=== PATIENT | male | born 1985 | race Hispanic/Latino ===

== ENCOUNTER 2020-09-21 09:53 | Day surgery (SDC) | payer BC ==
[~2020-09-21 09:53] MED LIST: ACETAMINOPHEN 500 MG TAB PO SCH; BACTERIOSTATIC SODIUM CHLORIDE 0.9% 30 ML VIAL INFILTRATI ONE; CELECOXIB 200 MG CAP PO NR; GABAPENTIN 300 MG CAP PO NR; LACTATED RINGERS 1,000 ML IV SCH; MIDAZOLAM 2 MG/2 ML INJ IV NR
[2020-09-21] MEDS ORDERED: ceFAZolin/STERILE WATER 2 GM/20 ML SYRINGE IV NR (10:49)
[2020-09-21] MEDS ORDERED: HYDROmorphone 1 MG/1 ML INJ IV PRN (11:20)
[2020-09-21] MEDS ORDERED: ONDANSETRON 4 MG/2 ML INJ IV PRN (11:20)
--- NOTE | 2020-09-21 11:20 | Anesthesia Day of Surgery ---
Anesthesia Day of Surgery - Day of Surgery Patient Examined: Yes Patient H&P Reviewed: Yes Patient is NPO: Yes
--- NOTE | 2020-09-21 11:20 | Anesthesia Consultation ---
Anesthesia Consult and Med Hx Date of service: 09/21/20 - Airway Anesthetic Teeth Evaluation: Good ROM Head & Neck: Adequate Mental/Hyoid Distance: Adequate (s/p ACDF but normal ROM) Mallampati Class: Class II Intubation Access Assessment: Probably Good - Pulmonary Exam CTA: Yes - Cardiac Exam Cardiac Exam: RRR - Pre-Operative Health Status ASA Pre-Surgery Classification: ASA2 Proposed Anesthetic Plan: General - Pulmonary Hx Smoking: Yes (chews tobacco; rare cigar smoker <1x per month) Hx Respiratory Symptoms: No Hx Sleep Apnea: No (NICKOLAS PRE SCREEN LOW RISK) - Cardiovascular System Hx Hypertension: No - Central Nervous System CVA: No Hx Psychiatric Problems: Yes (anxiety) - Endocrine Hx Renal Disease: No Hx Liver Disease: No Hx Insulin Dependent Diabetes: No Hx Non-Insulin Dependent Diabetes: No Hx Thyroid Disease: No - Other Systems Hx Obesity: Yes (BMI 36) - Additional Comments Anesthesia Medical History Comments: No hx anesthetic complications.
[2020-09-21] MEDS ORDERED: LIDOCAINE MPF (2%) 20 MG/1 ML VIAL 5 ML ONE (11:41)
[2020-09-21] MEDS ORDERED: HYDROmorphone 1 MG/1 ML INJ ONE (11:41)
[2020-09-21] MEDS ORDERED: propofoL 200 MG/20 ML VIAL IV ONE (11:41)
[2020-09-21] MEDS ORDERED: SODIUM CHLORIDE 0.9% IRR 1,500 ML BOTTLE IR ONE ×2 (13:31)
[2020-09-21] MEDS ORDERED: ONDANSETRON 4 MG/2 ML INJ ONE (14:16)
[2020-09-21] MEDS ORDERED: KETOROLAC 30 MG/1 ML INJ ONE (14:16)
[2020-09-21] MEDS ORDERED: LACTATED RINGERS 1,000 ML ONE (14:17)
--- NOTE | 2020-09-21 14:43 | Post Operative Note ---
Date of procedure: 09/21/20 Pre-op diagnosis: sterilization fistula Post-op diagnosis: same Findings: 9 mm fistula Procedure: bilat vas and urethral recontrtuction repair fistula Anesthesia: GETA Surgeon: HERMILA MARQUEZ Estimated blood loss: minimal Pathology: list (vasa) Specimen disposition: to lab Condition: stable Disposition: PACU
--- NOTE | 2020-09-21 14:45 | Discharge Summary ---
Short Stay Discharge Plan Activity: other (no sex and straining ) Weight Bearing Status: Full Weight Bearing Diet: low fat, low cholesterol Wound: open to air Special Instructions: other (teach reyes care ) Durable Medical Equipment Needed Upon Discharge: other (home with reyes ) Follow up with: EVANGELISTA ANDREWS [Other] - 7 Days HERMILA MARQUEZ MD [Staff Physician] - 10 Days
--- NOTE | 2020-09-21 15:30 | Post Anesthesia Evaluation ---
- Post Anesthesia Evaluation Patient Participated: Yes Airway Patent: Yes Stable Respiratory Function: Yes Nausea/Vomiting: No Temp > 96.8F: Yes Pain Manageable: Yes Adequeate Hydration: Yes Anesthesia Complications: No
--- NOTE | 2020-09-21 16:01 | Operative Report ---
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 PROCEDURE: Bilateral partial vasectomy with repair of urethrocutaneous fistula, multiple layers, insertion of Meneses. SURGEON: Addison Perez M.D. ANESTHESIA: General. FINDINGS: This is a gentleman who has had a piercing, would not close. He urinates with his finger over hole. He now presents for vasectomy and repair. DESCRIPTION OF PROCEDURE: The patient was brought to the operating room and placed on the operating room table. Following induction of anesthesia, placed in the supine position, prepped and draped in the usual sterile fashion. Bilateral vasa were easily palpated and incision was carried down to the vasa at first on the right, then on the left. Each vas was tied with 2-0 silk and area was cauterized after it was divided. It was oversewn with surrounding tissue. We did use one incision. Wound was irrigated. There was no significant bleeding. We used the cautery if needed and sutures were placed. Then, 2-3 sutures of chromic were placed to close the one incision. At this point, attention was turned towards the fistula. We used a 0.035 wire, it came out right out of the meatus from the fistula. Stay sutures were placed prior to that at the glans with Prolene and then we used stay sutures surrounding the fistula, so we would not have to traumatize the skin or the fistula. We undermined it. It was a lot easier obviously proximally and distally, especially at the 1 to 12 o'clock position, it was very, very thin. We undermined as best as possible. We did not have injury and once we placed the stay sutures in the fistula as well, we could see it was a lot bigger than at the skin level, and we isolated it and we undermined the surrounding tissue and then approximately 4 sutures were placed to close it. Multiple times we checked it, it was watertight. We were able to grab some surrounding fascia and close it, take any tension off of it and then sutured to skin. The patient tolerated the procedure well. No significant bleeding. Minimal blood loss. We used fine sutures, 5-0 and 4-0 as needed and he tolerated the procedure well. We used glue at the end of the case and a loose dressing, brought to recovery in stable condition. JOB# [id number] ELIER/REN
[2020-09-21 16:20] VITALS: BP 136/63
== END 2020-09-21 16:10 | disposition home or self-care (01) ==
LOC: OR 09:53
PROVIDERS: ATTEND Urology
DX: Z30.2 Encounter for sterilization (principal); N36.0 Urethral fistula; G43.909 Migraine, unspecified, not intractable, without status migrainosus; K21.9 Gastro-esophageal reflux disease without esophagitis; E66.9 Obesity, unspecified; F17.210 Nicotine dependence, cigarettes, uncomplicated; F41.9 Anxiety disorder, unspecified; Z72.89 Other problems related to lifestyle; Z79.899 Other long term (current) drug therapy; Z98.890 Other specified postprocedural states; Z68.36 Body mass index [BMI] 36.0-36.9, adult
CPT/HCPCS: 53400; 55250; 88302; C1769; J0690; J1170; J1885; J2250; J2405; J2704; J7120